=== PATIENT | male | born 1950 | race Caucasian/White ===

== ENCOUNTER 2018-03-09 14:04 | Emergency (ER) | payer MEDICARE, MEDICAID | END 2018-03-09 15:52 | disposition home or self-care (01) | LOC: ER 14:04 | DX: G89.29 Other chronic pain (principal); F20.0 Paranoid schizophrenia | CPT/HCPCS: 99283 ==

== ENCOUNTER 2018-08-24 19:48 | Emergency (ER) | payer MEDICARE, MEDICAID ==
[~2018-08-24] VITALS: Ht 177.8 cm; Wt 102.1 kg
[2018-08-24 19:58] VITALS: BP 143/73
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
== END 2018-08-24 21:06 | disposition home or self-care (01) ==
LOC: ER 19:48
DX: S20.211A Contusion of right front wall of thorax, initial encounter (principal); S50.311A Abrasion of right elbow, initial encounter; F20.9 Schizophrenia, unspecified; Z91.018 Allergy to other foods; W18.30XA Fall on same level, unspecified, initial encounter; Y93.89 Activity, other specified; Y92.89 Other specified places as the place of occurrence of the external cause; Y99.8 Other external cause status
CPT/HCPCS: 71101; 99284